=== PATIENT | male | born 1980 | race Caucasian/White ===

== ENCOUNTER 2017-10-16 21:00 | Emergency (ER) | payer OTHER ==
[~2017-10-16] VITALS: Ht 177.8 cm; Wt 82.4 kg
[2017-10-16 21:43] LABS: HEMATOCRIT 40.9 % (38.0-50.0); MCH 31.1 PG (29.0-34.0); MCHC 34.2 G/DL (30.0-36.0); MCV 90.9 FL (86-99); PLATELET COUNT 216 K/uL (156-360); RBC DIS.WIDTH-CV 12.3 % (11.8-14.6); RBC DIS.WIDTH-SD 40.6 % (39-53); WHITE BLOOD COUNT 5.3 K/uL (4.1-10.2)
[2017-10-16 21:55] LABS: CHLORIDE 103 mEq/L (99-109); POTASSIUM 3.8 mEq/L (3.7-5.4); SODIUM 140 mEq/L (136-147)
[2017-10-16 21:56] LABS: GLUCOSE 92 mg/dL (70-99)
[2017-10-16 22:00] LABS: CREATININE 0.8 mg/dL (0.6-1.3); GFR ESTIMATE (CALCULATED) > 59 mL/min/ (58.99-99999)
[2017-10-16 22:01] LABS: UREA NITROGEN (BUN) 11 mg/dL (9-23)
[2017-10-17] MEDS ORDERED: AUGMENTIN875 MG PO (00:02)
[2017-10-17 00:21] VITALS: BP 115/63
== END 2017-10-17 00:22 | disposition home or self-care (01) ==
LOC: EME 21:00 → EXP 21:00
PROVIDERS: Physician Assistant
DX: G43.909 Migraine, unspecified, not intractable, without status migrainosus (principal); L03.315 Cellulitis of perineum; F43.10 Post-traumatic stress disorder, unspecified; F17.200 Nicotine dependence, unspecified, uncomplicated
CPT/HCPCS: 74177; 80048; 85027; 99281; 99285; J1200; J1885; J2765; J7030